=== PATIENT | female | born 1995 | race Caucasian/White ===

== ENCOUNTER 2016-11-21 23:21 | Emergency (ER) | payer OTHER ==
[~2016-11-21] VITALS: Ht 149.9 cm; Wt 62.5 kg
[~2016-11-21 23:21] MED LIST: AUG875 PO; BEN25 PO; NAPR-260 PO; NEOM28OI TOP; PRED50TA PO; RTPRO; UDROBDM PO
[2016-11-21 23:25] VITALS: Ht 149.9 cm; Wt 62.5 kg
--- NOTE | 2016-11-22 01:26 | ERA ---
ER Documentation Chief Complaint Date/Time DATE: 11/22/16 TIME: 01 Chief Complaint left forearm pain x 1 hour, plates fell on arm HPI 21-year-old female presenting with left forearm pain. Patient was at work when a stack of plates fell on her left forearm. Patient now has pain with rotation of the forearm. Patient denies pain in the elbow or the wrist. Patient denies trauma to any other area of the body. There are no other social manifestations. Denies bleeding. Denies numbness and tingling ROS All systems reviewed and are negative except as per history of present illness. Medications Home Meds Active Scripts Ibuprofen* (Motrin*) 400 Mg Tab, 400 MG PO Q6, #30 TAB Prov:MALIK HANSON PA-C 11/22/16 Neomycin-Bacitrac Zinc-Polymyxin (Triple Antibiotic Ointment*) 28.35 Gm Oint..gm., 1 APPLIC TOP BID for 7 Days, EA Prov:ESTHER THAKKAR MD 01/27/16 Guaifenesin-Dextromethorphan* (Robitussin* DM) 100MG/10MG/5ML Syrup, 10 ML PO Q4H Y for COUGH for 4 Days, ML Prov:ELIAS NEFF NP 07/26/15 Amoxicillin-Clavulanate K* (Augmentin*) 875 Mg Tab, 875 MG PO BID for 7 Days, TAB Prov:ELIAS NEFF NP 07/26/15 Naproxen* (Naprosyn*) 500 Mg Tablet, 500 MG PO BID Y for PAIN AND/OR INFLAMMATION, #30 TAB Prov:AUNG QUISPE PA-C 01/23/15 Diphenhydramine Hcl* (Benadryl*) 25 Mg Cap, 25 MG PO Q6 Y for ITCHING, #30 TAB Prov:LUCAS QUINONES PA-C 01/10/15 Prednisone* (Prednisone*) 50 Mg Tablet, 50 MG PO QAM, #5 TAB Prov:LUCAS QUINONES PA-C 01/10/15 Reported Medications Albuterol Sulfate* (Proventil* Neb) 3 Ml Nebu 08/05/09 Allergies Allergies: Coded Allergies: loratadine (Verified Allergy, Intermediate, throat swelling, 11/22/16) No Known Drug Allergies (Verified Allergy, Unknown, 11/21/16) PMhx/Soc Medical and Surgical Hx: pt denies Surgical Hx History of Surgery: No Anesthesia Reaction: No Hx Neurological Disorder: No Hx Respiratory Disorders: Yes (asthma) Hx Cardiac Disorders: No Hx Psychiatric Problems: No Hx Miscellaneous Medical Probl: No Hx Alcohol Use: No Hx Substance Use: No Hx Tobacco Use: No Smoking Status: Never smoker Physical Exam Vitals Vital Signs Date Time Temp Pulse Resp B/P Pulse Ox O2 Delivery O2 Flow Rate FiO2 11/21/16 23:25 98.9 88 20 131/74 100 Physical Exam Const: Overweight 21-year-old female Head: Atraumatic Eyes: Normal Conjunctiva ENT: Normal External Ears, Nose and Mouth. Neck: Full range of motion..~ No meningismus. Resp: Clear to auscultation bilaterally Cardio: Regular rate and rhythm, no murmurs Abd: Soft, non tender, non distended. Normal bowel sounds Skin: No petechiae or rashes Back: No midline or flank tenderness Ext: No cyanosis, or edema. Left forearm pain with palpation of mid radial area. Pain with rotation of forearm. No pain to palpation or motion of wrist. Elbow elicits minimal pain with motion. Neur: Awake and alert. Patient is neurovascularly intact bilaterally Psych: Normal Mood and Affect Results 24 hrs Current Medications Medications (Trade) Dose Ordered Sig/Sue Route PRN Reason Start Time Stop Time Status Last Admin Dose Admin Ibuprofen (Motrin) 400 mg ONCE ONCE PO 11/22/16 01:30 11/22/16 01:31 DC 11/22/16 01:09 Procedures/MDM Patient is stable and is ready to be discharged have spoken with my attending and he agrees with my assessment and plan. 21-year-old female who had a stack of plates: Her work with trauma to the left forearm. X-ray showed no acute bony pathology. We will go ahead and discharge the patient with return precautions. Patient will be given ibuprofen for pain and swelling and discomfort. There is no evidence of acute bony pathology on x-ray. Will discharge with ibuprofen for pain control inflammation. Will give patient discharge instructions with return precautions. At this time a very low suspicion for compartment syndrome as there is no pain with extension of the wrist. No neurovascular deficits on physical exam pleasing to very low suspicion of neurovascular compromise. Departure Diagnosis: Primary Impression: Pain of left arm Additional Impression: Injury of upper extremity Qualified Code: S49.92XA - Injury of upper extremity, left, initial encounter Condition: Stable Additional Instructions: Follow up with your PCP within the next 1-3 days for a more thorough evaluation and a possible referral to a specialist. Return the the emergency department immediately if symptoms worsen or change. If you have any questions regarding medications, ask your pharmacist or us before you leave. If any adverse reactions occur while taking your medications, discontinue the treatment and return to the emergency department immediately. Take your medications as directed, and complete the entire course of treatment. MALIK HANSON PA-C Nov 22, 2016 01:26
[2016-11-22] MEDS ORDERED: IBUP400T22 PO (01:27)
[2016-11-22] MEDS ORDERED: IBUPROFEN 200 MG TAB PO ONE (01:30)
--- NOTE | 2016-11-22 02:13 | RADRPT ---
PROCEDURE: XR forearm. CLINICAL INDICATION: Trauma TECHNIQUE: AP and lateral views of the left forearm were performed. COMPARISON: There are no similar studies submitted for comparison. FINDINGS: There is normal bone mineralization.There is no acute fracture or dislocation.No osseous lesion is i dentified. IMPRESSION: No acute fracture or dislocation. RPTAT: HIKT .Bashir Meehan MD, MD Date Time Electronically viewed and signed by .Bashir Meehan MD, MD on 11/22/2016 02:13 .T/
[2016-11-22 02:25] VITALS: BP 110/65; PULSE 68; RESP 16; TEMP 98.6
== END 2016-11-22 02:28 | disposition home or self-care (01) ==
LOC: FTE 23:21
DX: S49.92XA Unspecified injury of left shoulder and upper arm, initial encounter (principal); J45.909 Unspecified asthma, uncomplicated; W20.8XXA Other cause of strike by thrown, projected or falling object, initial encounter; Y92.9 Unspecified place or not applicable
CPT/HCPCS: 73090